=== PATIENT | male | born 1960 | race Caucasian/White ===

== ENCOUNTER 2020-07-06 15:29 | Emergency (ER) | payer OTHER ==
[2020-07-06 16:26] LABS: EOSINOPHIL 3.5 % (0-5); HGB 14.7 g/dl (13.2-18.0); LYMPHOCYTE 37.3 % (15-48); MCH 28.9 pg (25.0-31.0); MCHC 33.4 g/dL (32.0-36.0); MCV 86.6 fL (78.0-100.0); MONOCYTE 7.5 % (0-12); MPV 11.9 fL (6.0-9.5); NEUTROPHIL 50.3 % (41-80); NRBC 0; PLT 252 K/uL (150-400); RBC 5.08 M/uL (4.70-6.00); RDW 12.9 % (11.5-14.0); WBC 12.3 K/uL (4.0-10.5)
[2020-07-06 16:35] LABS: INR 1.07 (0.9-1.2); PROTHROMBIN TIME 13.2 SECONDS (11.4-13.6); PTT 29.1 SECONDS (22.2-34.7)
[2020-07-06 16:36] LABS: ALBUMIN 3.9 g/dL (3.4-5.0); BILIRUBIN - TOTAL 0.4 mg/dL (0.2-1.0); BUN/CREAT RATIO (CALC) 22.2 RATIO; CREATININE 0.99 mg/dL (0.67-1.17); GLOBULIN (CALCULATION) 3.4 g/dL; POTASSIUM 3.7 mmol/L (3.5-5.1); TOTAL PROTEIN 7.3 g/dL (6.4-8.2)
== END 2020-07-06 18:50 | disposition left against medical advice (07) ==
LOC: FER 15:29
PROVIDERS: Emergency Medicine
DX: R07.9 Chest pain, unspecified (principal); R06.02 Shortness of breath; R11.0 Nausea; I25.10 Atherosclerotic heart disease of native coronary artery without angina pectoris; E11.9 Type 2 diabetes mellitus without complications; I10 Essential (primary) hypertension; Z85.528 Personal history of other malignant neoplasm of kidney; Z98.890 Other specified postprocedural states
CPT/HCPCS: 36415; 71045; 80053; 84484; 85025; 85610; 85730; 93005; C9113

== ENCOUNTER → 2021-10-01 | Day surgery (SDC) | payer OTHER ==
[~2021-10-01] VITALS: Ht 172.7 cm; Wt 78.9 kg
[~2021-10-01] MED LIST: ACETAMINOPHEN500 M1 PO; AMLODIPINE BESY10 MG PO; ASPIRIN EC81 MG PO; BUSPAR5 MG PO; LISINOPRIL-HCT1 EAC2 PO; MELOXICAM15 MG PO; METFORMIN HCL1000 MG PO; OMEPRAZOLE 20MG20 MG PO; PRAVASTATIN SOD10 M1 PO; SERTRALINE HCL100 MG PO
== END | disposition home or self-care (01) ==
LOC: FAS 06:30
DX: Z12.11 Encounter for screening for malignant neoplasm of colon (principal); K62.1 Rectal polyp; D72.829 Elevated white blood cell count, unspecified; E11.9 Type 2 diabetes mellitus without complications; I10 Essential (primary) hypertension; E78.5 Hyperlipidemia, unspecified; F17.200 Nicotine dependence, unspecified, uncomplicated; Z86.010 Personal history of colon polyps; Z79.82 Long term (current) use of aspirin; Z85.528 Personal history of other malignant neoplasm of kidney
CPT/HCPCS: 82962; J2704; J7120